=== PATIENT | male | born 1955 | race African-American/Black ===

== ENCOUNTER 2019-08-14 23:19 | Inpatient (IN) | payer OTHER ==
[~2019-08-14] VITALS: Ht 165.1 cm; Wt 85.0 kg
[~2019-08-14 23:19] MED LIST: AMLODIPINE10 MG PO; APRODINE; BENICAR HCT 251 TAB PO; GLIPIZIDE5 PO; METFORMIN500 MG PO; PATANASE0.6%; SIMVASTATIN40 MG PO; TRIAMTERENE W/H1 CAP PO
[2019-08-14 23:45] VITALS: Ht 165.1 cm; Wt 85.0 kg
[2019-08-15 01:03] LABS: BASOPHIL % 0.6 % (0-2); PLATELET COUNT 269 x10^3mcL (130-400); RED CELL DISTRIBUTION WIDTH 13.5 % (11.5-14.5)
[2019-08-15 03:19] LABS: CALCIUM 8.9 mg/dL (8.5-10.1); CARBON DIOXIDE 28.4 mmol/L (21-32); CREATININE SERUM 1.5 mg/dL (0.7-1.3); POTASSIUM SERUM 3.1 mmol/L (3.5-5.1)
[2019-08-15 03:23] LABS: BILIRUBIN TOTAL 0.42 mg/dL (0.20-1.00); TOTAL PROTEIN, SERUM 8.1 g/dL (6.4-8.2)
[2019-08-15 03:43] LABS: ALBUMIN 3.1 g/dL (3.4-5.0)
[2019-08-15 04:56] VITALS: BP 128/82
[2019-08-15 07:30] LABS: BASOPHIL % 0.2 % (0-2); PLATELET COUNT 242 x10^3mcL (130-400)
[2019-08-15 07:33] LABS: RED CELL DISTRIBUTION WIDTH 14.6 % (11.5-14.5)
[2019-08-15 07:51] LABS: CALCIUM 8.7 mg/dL (8.5-10.1); CARBON DIOXIDE 26.7 mmol/L (21-32); CREATININE SERUM 1.4 mg/dL (0.7-1.3); MAGNESIUM 2.1 mg/dL (1.8-2.4); POTASSIUM SERUM 3.3 mmol/L (3.5-5.1)
[2019-08-15 08:33] VITALS: BP 129/78
[2019-08-15 08:47] VITALS: BP 129/78
[2019-08-15 13:18] LABS: microscopic required? YES; urine erythrocyte NEGATIVE (NEGATIVE)
[2019-08-15 13:36] LABS: AMPHETAMINE QUAL UR NONE DETECTED (See below)
[2019-08-15 17:35] VITALS: BP 137/78
[2019-08-15 17:39] VITALS: BP 129/78
[2019-08-15 20:29] VITALS: BP 116/72
[2019-08-16 04:47] VITALS: BP 131/75
[2019-08-16 06:37] LABS: BASOPHIL % 0.3 % (0-2); PLATELET COUNT 284 x10^3mcL (130-400)
[2019-08-16 06:49] LABS: CALCIUM 8.5 mg/dL (8.5-10.1); CARBON DIOXIDE 27.4 mmol/L (21-32); CREATININE SERUM 1.6 mg/dL (0.7-1.3); PHOSPHOROUS 3.9 mg/dL (2.5-4.9); POTASSIUM SERUM 4.2 mmol/L (3.5-5.1)
[2019-08-16 09:49] VITALS: BP 135/77
[2019-08-16 13:20] VITALS: BP 148/82
[2019-08-16 18:05] VITALS: BP 137/78
[2019-08-16 21:20] VITALS: BP 146/75
[2019-08-17 06:12] LABS: BASOPHIL % 0.4 % (0-2); PLATELET COUNT 319 x10^3mcL (130-400)
[2019-08-17 06:29] LABS: CALCIUM 8.8 mg/dL (8.5-10.1); CREATININE SERUM 1.4 mg/dL (0.7-1.3); MAGNESIUM 2.1 mg/dL (1.8-2.4); PHOSPHOROUS 3.6 mg/dL (2.5-4.9); POTASSIUM SERUM 4.2 mmol/L (3.5-5.1)
[2019-08-17 06:56] LABS: RED CELL DISTRIBUTION WIDTH 14.9 % (11.5-14.5)
[2019-08-17 09:32] VITALS: BP 151/82
[2019-08-17 13:01] VITALS: BP 145/79
[2019-08-17 17:19] VITALS: BP 145/76
[2019-08-17 21:12] VITALS: BP 159/83
[2019-08-18 05:33] VITALS: BP 135/76
[2019-08-18 06:33] LABS: CALCIUM 8.9 mg/dL (8.5-10.1); CARBON DIOXIDE 28.2 mmol/L (21-32); CREATININE SERUM 1.4 mg/dL (0.7-1.3); MAGNESIUM 1.9 mg/dL (1.8-2.4); PHOSPHOROUS 4.2 mg/dL (2.5-4.9)
[2019-08-18 06:34] LABS: BASOPHIL % 0.7 % (0-2); PLATELET COUNT 341 x10^3mcL (130-400)
[2019-08-18 07:54] LABS: RED CELL DISTRIBUTION WIDTH 15.2 % (11.5-14.5)
[2019-08-18 08:58] VITALS: BP 141/80
[2019-08-18 12:16] VITALS: BP 127/85
[2019-08-18 16:44] VITALS: BP 131/79
[2019-08-18 20:56] VITALS: BP 143/90
[2019-08-19 05:02] VITALS: BP 140/81
[2019-08-19 06:32] LABS: BASOPHIL % 0.4 % (0-2); PLATELET COUNT 392 x10^3mcL (130-400)
[2019-08-19 06:47] LABS: CALCIUM 8.9 mg/dL (8.5-10.1); CREATININE SERUM 1.3 mg/dL (0.7-1.3); POTASSIUM SERUM 3.8 mmol/L (3.5-5.1)
[2019-08-19 06:48] LABS: RED CELL DISTRIBUTION WIDTH 14.8 % (11.5-14.5)
[2019-08-19 08:30] VITALS: BP 143/82
[2019-08-19 08:53] VITALS: BP 143/82
[2019-08-19] MEDS ORDERED: LEVOFLOXACIN500 M1 PO (11:07)
[2019-08-19] MEDS ORDERED: SPIRIVA18 MC1 INH (11:11)
[2019-08-19] MEDS ORDERED: PREDNISONE20 MG PO (11:11)
[2019-08-19] MEDS ORDERED: ADV250/50 INH (11:11)
[2019-08-19 11:55] VITALS: BP 133/80
[2019-08-19 20:31] VITALS: BP 137/79
[2019-08-20 04:47] VITALS: BP 127/72
[2019-08-20 08:50] VITALS: BP 137/83
[2019-08-20 11:20] VITALS: BP 142/81
[2019-08-20 15:49] VITALS: BP 142/81
[2019-08-20 16:20] VITALS: BP 142/87
== END 2019-08-20 17:30 | disposition home or self-care (01) | DRG 871 ==
LOC: ED 23:19 → MU 08-15 03:31 → DU 08-15 03:31 → MU 08-15 04:30 → DU 08-15 17:30
PROVIDERS: Emergency Medicine; Internal Medicine; ADMIT General Practice
DX: A41.9 Sepsis, unspecified organism (principal); J18.9 Pneumonia, unspecified organism; N17.0 Acute kidney failure with tubular necrosis; J96.01 Acute respiratory failure with hypoxia; E11.65 Type 2 diabetes mellitus with hyperglycemia; E87.6 Hypokalemia; J45.909 Unspecified asthma, uncomplicated; I10 Essential (primary) hypertension; E78.5 Hyperlipidemia, unspecified; Z87.01 Personal history of pneumonia (recurrent); Z87.891 Personal history of nicotine dependence; Z79.84 Long term (current) use of oral hypoglycemic drugs; Z85.46 Personal history of malignant neoplasm of prostate; Z90.79 Acquired absence of other genital organ(s); Z68.31 Body mass index [BMI] 31.0-31.9, adult
CPT/HCPCS: 36600; 82962; 83880; G0378; J0456; J0696; J1644; J1885; J2060; J2270; J2543; J7030; J7050; J7060; J7620; J7626; Q0092